=== PATIENT | female | born 1945 | race Caucasian/White ===

== ENCOUNTER → 2017-01-30 | Outpatient (CLI) | payer OTHER | LOC: FIMAGING 11:18 | PROVIDERS: ATTEND Family Medicine | DX: Z12.31 Encounter for screening mammogram for malignant neoplasm of breast (principal); Z85.3 Personal history of malignant neoplasm of breast; Z92.3 Personal history of irradiation | CPT/HCPCS: G0202 ==

== ENCOUNTER → 2017-07-28 | Outpatient (CLI) | payer OTHER | LOC: FIMAGING 12:29 | PROVIDERS: ATTEND Physician Assistant Medical | DX: Z13.820 Encounter for screening for osteoporosis (principal); M85.89 Other specified disorders of bone density and structure, multiple sites; Z78.0 Asymptomatic menopausal state; Z85.3 Personal history of malignant neoplasm of breast ==

== ENCOUNTER → 2018-01-10 | Outpatient (CLI) | payer OTHER | LOC: FCPNEURO 20:00 | PROVIDERS: ATTEND Student in an Organized Health Care Education/Training Program | DX: G47.33 Obstructive sleep apnea (adult) (pediatric) (principal); R09.02 Hypoxemia; R94.01 Abnormal electroencephalogram [EEG] ==

== ENCOUNTER → 2018-01-18 | Outpatient (CLI) | payer OTHER ==
--- NOTE | 2018-01-21 18:50 | CPEEG ---
[f rep st] ELECTROENCEPHALOGRAM ELECTROENCEPHALOGRAM. DATE OF STUDY: 01/18/2018 DATE OF INTERPRETATION: 01/21/2018. INTERPRETATION: Essentially normal EEG during wakefulness and sleep. There were no definite epilept ogenic potentials. There were no definite potentially epileptogenic abnormalities present during the recording. REPORT: This EEG contains 9-10 Hz alpha activity over the posterior head regions. There is no defin ite abnormal activation at rest or during photic stimulation or hyperventilation. The patient interm ittently became drowsy during the study and fell asleep. During drowsiness, the patient had infreque nt temporal transients and wicket-like waves, maximal over the right temporal head region. This is a normal drowsy pattern in this age group. There was no definite abnormal activation during drowsines s, sleep, or during times of arousal. /[id number]/MODL
== END ==
LOC: FCPNEURO 14:47
PROVIDERS: ATTEND Psychiatry & Neurology Neurology
DX: R94.01 Abnormal electroencephalogram [EEG] (principal)

== ENCOUNTER 2018-02-11 07:36 | Day surgery (SDC) | payer OTHER ==
[2018-02-11] MEDS ORDERED: DIAZEPAM 5 MG TAB PO ONE (07:40)
[2018-02-11] MEDS ORDERED: ASPIRIN EC 325 MG TAB PO ONE (07:40)
[2018-02-11] MEDS ORDERED: FAMOTIDINE 20 MG TAB PO ONE (07:40)
[2018-02-11] MEDS ORDERED: NS 1,000 ML IV ONE (07:40)
[2018-02-11] MEDS ORDERED: diphenhydrAMINE 25 MG CAP PO ONE (07:40)
--- NOTE | 2018-02-11 08:11 | CPEKG ---
Heart Rate: 64 RR Interval: 938 P-R Interval: 208 QRSD Interval: 102 QT Interval: 424 QTC Interval: 438 P [place]: 46 QRS [place]: 15 T Wave [place]: -55 EKG Severity - ABNORMAL ECG - EKG Impression: SINUS RHYTHM EKG Impression: MULTIPLE VENTRICULAR PREMATURE COMPLEXES Electronically Signed By: Gloria Madera 11-Feb-2018 13:06:24
[2018-02-11] MEDS ORDERED: MIDAZOLAM 2 MG/2 ML VIAL ONE (08:22)
[2018-02-11] MEDS ORDERED: fentaNYL 100 MCG/2 ML INJ ONE (08:22)
[2018-02-11] MEDS ORDERED: LIDOCAINE 1% 300 MG/30 ML SDV ONE (08:22)
[2018-02-11] MEDS ORDERED: IOPAMIDOL (ISOVUE-370) 150 ML BTL IV ONE (08:22)
--- NOTE | 2018-02-11 08:26 | PDPROPOC ---
Sedation Plan of Care Sedation Plan of Care: vital signs stable, mental status noted, patient educated of risks, benefits, alternatives, patient can tolerate sedation ASA Classification: ASA 2 Planned drugs: fentanyl, midazolam Mallampati Score: Class 2 Mallampati Reference Image: Patient passed 3-3-2 rule?: Yes
--- NOTE | 2018-02-11 08:29 | PDGENHP ---
History & Physical Chief Complaint: new onset cardiomyopathy and abnormal stress test History of Present Illness: Pt is a 72 yo, f with a history of MVR, PAF, and CAD who presented with symptoms of fatigue and SOB. She was found to have a new CM wiht reduced LVEF. follow up testing including echocardiogram, holter monitor, and stress test was notable for normal valve function, reduced LVEF, borderline rate controlled A-fib, and a perfusion defect. Relevant Physical Exam: RRR. S1, S2, normal valve sounds. CTA. mild edema Cardiorespiratory Assessment: Plan for angiogram to evalaute coronary anatomy.
[2018-02-11 08:38] LABS: PLATELET COUNT 215 10^3/uL (150-400)
[2018-02-11 08:48] LABS: INR 1.13 (0.83-1.16); PROTIME(PATIENT) 14.7 SEC (12.0-15.0)
[2018-02-11] MEDS ORDERED: NITROGLYCERIN 0.4 MG BTL SL PRN (09:36)
[2018-02-11] MEDS ORDERED: ONDANSETRON 4 MG/2 ML VIAL IVP PRN (09:36)
[2018-02-11] MEDS ORDERED: ATROPINE SULFATE 1 MG/10 ML SYR IVP PRN (09:36)
--- NOTE | 2018-02-11 10:11 | CPIP ---
[f rep st] INVASIVE CARDIAC PROCEDURE DATE OF PROCEDURE: 02/11/2018 PROCEDURE: 1. Coronary angiography. 2. Left ventriculography. 3. Fluoroscopy of mitral valve. INDICATION: 1. New onset cardiomyopathy. 2. Congestive heart failure class 3. 3. Abnormal nuclear stress test that is moderate risk. 4. Status post mechanical mitral valve replacement. ACCESS: Patient was prepped and draped in sterile fashion. 1% lidocaine was used to anesthetize the right inguinal region. A 6-[place] introducer sheath was placed selectively into the right common fe moral artery via modified Seldinger technique. CORONARY ANGIOGRAPHY: A 6-[place] JL4 was advanced to the left main coronary artery and images obtain ed. The left main coronary artery bifurcated into an LAD and circumflex coronary arteries. The left main coronary artery appeared normal. The left anterior descending coronary artery gave rise to 2 d iagonal branches. The left anterior descending coronary artery had mild luminal irregularities throu ghout. There was no stenosis greater than 20%. The diagonal arteries were free of any significant d isease. The circumflex coronary artery is a large vessel but was nondominant. Circumflex coronary a rtery gave rise to 2 OM branches. The circumflex coronary artery had mild luminal irregularities thr oughout. There was no stenosis greater than 15%. Six-[place] JR4 was advanced to the right coronary artery and images obtained. The right coronary artery is dominant. The right coronary artery had a single discrete 40% stenosis in the midvessel. LEFT VENTRICULOGRAPHY: A 6-[place] pigtail catheter was advanced in the left ventricle and images obt ained. Left ventricle was mildly dilated in size with reduced systolic function. Estimated ejection fraction was 40%. The LVEDP was elevated at 28 mmHg. FLUOROSCOPY OF MITRAL VALVE: Fluoroscopy was performed on the mitral valve. The mitral valve appear ed to have normal opening and closing angles. COMPLICATIONS: None. CONCLUSIONS: 1. Mild coronary artery disease without flow limitation. 2. Reduced left ventricular systolic function with an estimated ejection fraction of 40%. 3. Plan is for medical management. /[id number]/MODL
[2018-02-11] MEDS ORDERED: PENICILLIN VK 500 MG TAB PO SCH (21:00)
[2018-02-11] MEDS ORDERED: NON-FORMULARY NEW DRUG (Omeprazole [Omeprazole] 40 MG) PO SCH (21:00)
[2018-02-11] MEDS ORDERED: WARFARIN SODIUM 5 MG TAB PO SCH (21:00)
[2018-02-11] MEDS ORDERED: VITAMIN D3 PO SCH (21:00)
[2018-02-11] MEDS ORDERED: METOPROLOL TARTRATE 50 MG TAB PO SCH (21:00)
[2018-02-11] MEDS ORDERED: CALCIUM CARBONATE PO SCH (21:00)
[2018-02-11] MEDS ORDERED: ATORVASTATIN CALCIUM 40 MG TAB PO SCH (21:00)
[2018-02-12] MEDS ORDERED: ASPIRIN 325 MG TAB PO SCH (09:00)
[2018-02-12] MEDS ORDERED: POTASSIUM CL 10 MEQ TAB PO SCH (09:00)
[2018-02-12] MEDS ORDERED: VITAMIN B COMPLEX 1 EA CAP/TAB PO SCH (09:00)
[2018-02-12] MEDS ORDERED: SERTRALINE HCL 100 MG TAB PO SCH (09:00)
[2018-02-12] MEDS ORDERED: lamoTRIgine 25 MG TAB PO SCH (09:00)
[2018-02-12] MEDS ORDERED: OMEGA-3 FATTY ACIDS 1,000 MG CAP PO SCH (09:00)
[2018-02-12] MEDS ORDERED: MULTIVITAMINS 1 EACH TAB PO SCH (09:00)
[2018-02-12] MEDS ORDERED: FUROSEMIDE 20 MG TAB PO SCH (09:00)
[2018-02-12] MEDS ORDERED: buPROPion XL 150 MG TAB PO SCH (09:00)
[2018-02-12] MEDS ORDERED: ARIPiprazole 5 MG TAB PO SCH (09:00)
[2018-02-12] MEDS ORDERED: WARFARIN SODIUM 2.5 MG TAB PO SCH (21:00)
== END 2018-02-11 13:26 | disposition home or self-care (01) ==
LOC: FCATH 07:36
PROVIDERS: ATTEND Internal Medicine Cardiovascular Disease
PROC: B2151ZZ Fluoroscopy of Left Heart using Low Osmolar Contrast (ICD-10-PCS; principal; 2018-02-11)
PROC: B2111ZZ Fluoroscopy of Multiple Coronary Arteries using Low Osmolar Contrast (ICD-10-PCS; principal; 2018-02-11)
DX: I42.9 Cardiomyopathy, unspecified (principal); I50.9 Heart failure, unspecified; R94.39 Abnormal result of other cardiovascular function study; Z95.2 Presence of prosthetic heart valve; I48.0 Paroxysmal atrial fibrillation; Z79.01 Long term (current) use of anticoagulants; Z85.3 Personal history of malignant neoplasm of breast; I10 Essential (primary) hypertension; E78.00 Pure hypercholesterolemia, unspecified; E78.5 Hyperlipidemia, unspecified; G47.33 Obstructive sleep apnea (adult) (pediatric)
CPT/HCPCS: C1760; J1644; J2250; J3010; Q9967

== ENCOUNTER → 2018-02-19 | Outpatient (CLI) | payer OTHER ==
[~2018-02-19] MED LIST: GADOBUTROL 10 ML VIAL IVP ONE
== END ==
LOC: FIMAGING 14:00
PROVIDERS: ATTEND Psychiatry & Neurology Neurology
DX: G23.8 Other specified degenerative diseases of basal ganglia (principal); G31.9 Degenerative disease of nervous system, unspecified; R94.02 Abnormal brain scan; Z86.73 Personal history of transient ischemic attack (TIA), and cerebral infarction without residual deficits
CPT/HCPCS: 70553; A9585